=== PATIENT | female | born 1950 | race Caucasian/White ===

== ENCOUNTER → 2016-12-19 | Outpatient (CLI) | payer MEDICARE, OTHER ==
[~2016-12-19] MED LIST: ADVIL 200MG TA200 MG PO; ALLEGRA30 MG PO; BIOTIN1 MG PO; CALCIUM 600MG+D1 TAB PO; CALCIUM1 CAP PO; CARDI-OMEGA1000 MG PO; CHANTIX 1MG1 MG PO; CLARITIN 1010 MG/TAB PO; DESYREL 50MG50 MG PO; DETROL2 MG PO; DIFLUCAN; EDECRIN25 M1 PO; FOSAMAX PO; GLUCOPHAGE1000 MG PO; GLUCOSAMINE & C1 CAP PO; GLUCOTROL XL2.5 MG PO; HEMORRHOIDAL HYGI50% TP; INDERAL 20MG20 MG PO; JANUMXR1000-50; LEVAQUIN 750MG750 MG PO; LIPITOR 10MG10 MG PO; LIPITOR20 MG PO; LORTAB 5/500 501 TAB PO; MELOXICAM; MILLIPRED DP5 MG; NASAL MOISTURIZ45 ML NS; NEXIUM 20MG20 MG PO; NEXIUM 40MG40 MG PO; NEXIUM40 MG PO; NORCO 325 MG-51 TAB PO; NORCO 325 MG-7.1 TAB PO; PLAQUENIL 200M200 MG; PRIL40 PO; PROAIR HFA0.09 MG/AC IH; RT ADVAIR 228 DISKUS IH; RT SPIRIVA18 MCG IH; SYNTHROID0.05 MG/TA PO; ULTRAM 50MG TAB50 MG PO; VESICARE 5MG5 MG PO; VITAMIN D32000 I1 PO; VOLTAREN SR25 MG/TAB PO; WELLBUTRIN SR150 M1 PO; ZITHROMAX 250M250 MG PO; ZOCOR 10MG10 MG PO; ZOCOR PO; ZYRTEC 10MG10 MG PO
== END ==
LOC: COL.RAD 08:00
PROVIDERS: Surgery
DX: K43.2 Incisional hernia without obstruction or gangrene (principal); Q79.59 Other congenital malformations of abdominal wall
CPT/HCPCS: Q9967

== ENCOUNTER 2017-03-16 16:15 | Inpatient (IN) | payer MEDICARE, OTHER ==
[~2017-03-16 16:15] MED LIST changes: -CHANTIX 1MG1 MG PO; -DESYREL 50MG50 MG PO; -EDECRIN25 M1 PO; -HEMORRHOIDAL HYGI50% TP; -NASAL MOISTURIZ45 ML NS; -PRIL40 PO; -VOLTAREN SR25 MG/TAB PO; -WELLBUTRIN SR150 M1 PO
[2017-04-04] VITALS (12 sets, daily range): BP systolic 90–116; BP diastolic 40–69; PULSE 66–75; TEMP 97.1–98.4
[2017-04-04] MEDS ORDERED: LIPITOR20 MG PO (11:08)
[2017-04-04] MEDS ORDERED: CHANTIX 1MG1 MG PO (11:26)
[2017-04-04] MEDS ORDERED: VOLTAREN SR25 MG/TAB PO (11:26)
[2017-04-04] MEDS ORDERED: EDECRIN25 M1 PO (11:27)
[2017-04-04] MEDS ORDERED: NASAL MOISTURIZ45 ML NS (11:28)
[2017-04-04] MEDS ORDERED: INDERAL 20MG20 MG PO (11:28)
[2017-04-04] MEDS ORDERED: DESYREL 50MG50 MG PO (11:29)
[2017-04-04] MEDS ORDERED: HEMORRHOIDAL HYGI50% TP (11:30)
[2017-04-04] MEDS ORDERED: PRIL40 PO (14:20)
[2017-04-04] MEDS ORDERED: WELLBUTRIN SR150 M1 PO (14:21)
[2017-04-05 01:50] VITALS: BP 108/52; PULSE 72; TEMP 97.9
[2017-04-05 05:26] VITALS: BP 112/61; PULSE 70; TEMP 98.4
[2017-04-05 09:19] VITALS: BP 98/49; PULSE 45; TEMP 97.9
[2017-04-05 14:45] VITALS: BP 104/53; PULSE 76
[2017-04-05 17:46] VITALS: BP 122/65; PULSE 78
[2017-04-05 22:35] VITALS: BP 124/63; PULSE 74; TEMP 98.3
[2017-04-06 02:29] VITALS: BP 119/58; PULSE 73; TEMP 98.6
[2017-04-06 05:16] VITALS: BP 130/64; PULSE 73; TEMP 98.6
[2017-04-06 09:38] VITALS: BP 133/71; PULSE 73; TEMP 99.2
== END 2017-04-06 13:53 | disposition home or self-care (01) | DRG 902 ==
LOC: OR 04-04 08:48 → SURG 04-04 08:48
PROVIDERS: Surgery
PROC: 0HB7XZZ Excision of Abdomen Skin, External Approach (ICD-10-PCS; 2017-04-04)
PROC: 0WUF0JZ Supplement Abdominal Wall with Synthetic Substitute, Open Approach (ICD-10-PCS; 2017-04-04)
PROC: 0WPF0JZ Removal of Synthetic Substitute from Abdominal Wall, Open Approach (ICD-10-PCS; principal; 2017-04-04 10:15)
DX: T85.79XA Infection and inflammatory reaction due to other internal prosthetic devices, implants and grafts, initial encounter (principal); T83.728A Exposure of other implanted mesh into organ or tissue, initial encounter; K43.2 Incisional hernia without obstruction or gangrene; B96.5 Pseudomonas (aeruginosa) (mallei) (pseudomallei) as the cause of diseases classified elsewhere; E11.9 Type 2 diabetes mellitus without complications; J44.9 Chronic obstructive pulmonary disease, unspecified; Z87.891 Personal history of nicotine dependence
CPT/HCPCS: A4315; C1781; J0330; J0360; J0690; J1100; J1200; J1650; J1885; J2250; J2300; J2405; J2704; J2710; J2765; J2795; J3010; J3370; J7030; J7040; J7120

== ENCOUNTER → 2017-04-17 | Outpatient (CLI) | payer MEDICARE, OTHER ==
[~2017-04-17] MED LIST changes: +CHANTIX 1MG1 MG PO; +DESYREL 50MG50 MG PO; +EDECRIN25 M1 PO; +HEMORRHOIDAL HYGI50% TP; +NASAL MOISTURIZ45 ML NS; +PRIL40 PO; +VOLTAREN SR25 MG/TAB PO; +WELLBUTRIN SR150 M1 PO
== END ==
LOC: ZCOL.LAB 14:13
DX: Z01.89 Encounter for other specified special examinations (principal)

== ENCOUNTER 2017-12-25 12:30 | Outpatient (RCR) | payer MEDICARE, OTHER | END 2018-02-22 07:18 | disposition home or self-care (01) | LOC: WSPT 12:30 | DX: M47.896 Other spondylosis, lumbar region (principal) | CPT/HCPCS: G8978-GP; G8979-GP; G8980-GP ==

== ENCOUNTER 2018-11-02 09:51 | Observation (INO) | payer MEDICARE, OTHER ==
[~2018-11-02] VITALS: Ht 175.3 cm; Wt 100.7 kg
[2018-11-02 10:51] LABS: COLLECTION METHOD CLEAN CATCH
[2018-11-02 10:54] LABS: BASO # 0.1 (0.0-0.2); BASO % 0.5 % (0.0-2.0); EOS # 0.1 (0.0-0.7); EOS % 0.7 % (0-4.0); GRAN # 11.9 (1.4-6.5); GRAN % 83.4 % (42.2-75.2); HEMATOCRIT 49.5 % (37.0-47.0); HEMOGLOBIN 16.8 g/dl (12.5-16.0); LYMPH # 1.4 (1.2-3.4); LYMPH % 9.5 % (20.0-51.0); MEAN CELL VOLUME 86 fl (80.0-100.0); MEAN CORPUSCULAR HEMOGLOBIN 29 pg (27.0-31.0); MEAN CORPUSCULAR HGB CONC 34 g/dl (33.0-37.0); MEAN PLATELET VOLUME 10.9 fl (7.4-10.4); MONO # 0.8 (0.1-0.6); MONO % 5.5 % (1.7-9.3); PLATELET COUNT 427 K/mm3 (130-400); RED BLOOD COUNT 5.74 M/mm3 (4.10-5.30); REDCELL DISTRIBUTION WIDTH-CV 14.7 % (11.5-14.5)
[2018-11-02 11:04] LABS: MUCOUS Present /lpf; PH 6 (5-8); URINE APPEARANCE Cloudy; URINE BACTERIA None Seen /hpf; URINE BILIRUBIN Negative (NEGATIVE); URINE BLOOD 1+ (NEGATIVE); URINE GLUCOSE Negative (NEGATIVE); URINE KETONE Negative (NEGATIVE); URINE LEUKOCYTE ESTERASE 1+ (NEGATIVE); URINE NITRATE Negative (NEGATIVE); URINE PROTEIN(semi-quant) 1+ (NEGATIVE)
[2018-11-02 11:08] LABS: URINE COLOR Yellow
[2018-11-02 11:23] LABS: ALBUMIN 4.2 gm/dL (3.5-5.0); BILIRUBIN,TOTAL 0.8 mg/dL (0.0-1.0); CALCIUM 9.7 mg/dL (8.4-10.2); CREATININE, serum 0.71 mg/dL (0.52-1.25); POTASSIUM 4.2 mmol/L (3.4-5.0); TOTAL PROTEIN 7.3 gm/dL (6.4-8.2)
[2018-11-02 15:24] VITALS: BP 115/54; PULSE 63; TEMP 97.5
[2018-11-02 15:29] VITALS: BP 115/54; PULSE 63; TEMP 97.5
[2018-11-02 15:34] VITALS: BP 115/54; PULSE 63; TEMP 97.5
[2018-11-02] MEDS ORDERED: TRULICITY1.5 MG/0.5 SQ (16:09)
[2018-11-02 19:37] VITALS: BP 123/64; PULSE 71; TEMP 98.1
--- NOTE | 2018-11-02 23:19 | NUR ---
PT IN BED. REFUSED EVENING MEDS TO AVOID NAUSEA/EMESIS. PT INFORMED SHE COULD HAVE PAIN MEDS BUT THEY SLOW THE GUT DOWN. PT DECIDED TO WAIT AWHILE LONGER. PT'S BOWEL SOUNDS ARE HYPERACTIVE. PT ENCOURAGED TO AMBULATE.
[2018-11-03 00:01] VITALS: BP 131/58; PULSE 74; TEMP 98.4
[2018-11-03 04:16] VITALS: BP 95/55; PULSE 73; TEMP 97.7
--- NOTE | 2018-11-03 05:42 | NUR ---
RESTING QUIETLY. NO REQUEST FOR PAIN MEDS SINCE MIDNIGHT. PT REPORTED SHE'S PASSING SOME GAS.
[2018-11-03 06:27] LABS: HEMATOCRIT 44.6 % (37.0-47.0); MEAN CELL VOLUME 88 fl (80.0-100.0); MEAN CORPUSCULAR HEMOGLOBIN 29 pg (27.0-31.0); MEAN CORPUSCULAR HGB CONC 33 g/dl (33.0-37.0); MEAN PLATELET VOLUME 10.8 fl (7.4-10.4); PLATELET COUNT 359 K/mm3 (130-400); RED BLOOD COUNT 5.07 M/mm3 (4.10-5.30); REDCELL DISTRIBUTION WIDTH-CV 14.9 % (11.5-14.5)
[2018-11-03 06:29] LABS: HEMOGLOBIN 14.7 g/dl (12.5-16.0)
[2018-11-03 06:38] LABS: ALBUMIN 3.5 gm/dL (3.5-5.0); CALCIUM 8.8 mg/dL (8.4-10.2); CREATININE, serum 0.67 mg/dL (0.52-1.25); MAGNESIUM 1.8 mg/dL (1.6-2.3); TOTAL PROTEIN 6.4 gm/dL (6.4-8.2)
[2018-11-03 06:55] VITALS: BP 92/54; PULSE 70; TEMP 98
[2018-11-03 06:59] LABS: BAND 5 % (0-10); EOSINOPHIL 2 % (0-4); LYMPHOCYTE 17 % (20.0-51.0); NEUTROPHILS 71 % (42.0-75.2); PLATELET ESTIMATE NORMAL (NORMAL)
--- NOTE | 2018-11-03 11:09 | NUR ---
Patient alert and oriented, answers questions appropriately. See assessment. Abdomen soft, non distended. Bowel sounds active x4 quads. +Flatus. No c/o pain or discomfort with abdominal palpation. No other c/o at this time.
[2018-11-03 12:01] VITALS: BP 137/61; PULSE 68; TEMP 98.2
[2018-11-03 16:58] VITALS: BP 114/57; PULSE 67; TEMP 98.1
[2018-11-03 19:24] VITALS: BP 122/59; PULSE 60; TEMP 97.9
[2018-11-04 00:01] VITALS: BP 113/55; PULSE 66; TEMP 97.8
[2018-11-04 04:28] VITALS: BP 132/70; PULSE 68; TEMP 98.8
[2018-11-04 07:49] VITALS: BP 135/70; PULSE 57; TEMP 98
--- NOTE | 2018-11-04 08:00 | NUR ---
PATIENT SITTING UP AT THE BEDSIDE WITH HER BREAKFAST TRAY THIS MORNING. PATIENT IS A&O. VSS. UPPER LUNG LOBES CLEAR UPON AUSCULTATION. COARSE CRACKLES AUSCULTATED OVER LUNG BASES BILATERALLY. PATIENT DENIES COMPLAINTS OF SHORTNESS OF BREATH OR PRODUCTIVE COUGH. BOWEL SOUNDS ACTIVE ALL FOUR QUADRANTS. PATIENT TOLERATING CLEAR LIQUIDS WITHOUT ANY COMPLAINTS OF N/V. POSITIVE PEDAL PULSES EQUAL BILATERALLY. ABDOMEN SOFT TO PALPATION. INDEPENDENT AGENT MUSIC EDUCATION REPORTED TWO LARGE BM'S OVER NIGHT. PATIENT PASSING FLATUS. IV FLUIDS INFUSING TO LEFT HAND IV VIA PUMP. PATIENT DENIES ANY PAIN AT THIS TIME. CALL LIGHT WITHIN REACH. DAUGHTER AT THE BEDSIDE. NO OTHER NEEDS AT THIS TIME.
--- NOTE | 2018-11-04 11:45 | NUR ---
NA met with the patient's daughter (Chayito) and (Leon) to discuss discharge plan. The patient was on a walk. The patient lives in [place] with her , Leon. The patient's reports that the patient is independent with ADLs, does not use any assistive devices, and has a CPAP from [facility]. The patient's PCP is Dr. Lul Dove and she receives her medications on [place]. The patient's advanced directives are in EMR. The patient plans to return home with her upon discharge. No additional needs at this time.
[2018-11-04 12:05] VITALS: BP 150/69; PULSE 99; TEMP 98.5
[2018-11-04] MEDS ORDERED: COLACE 100100 MG/CAP PO (13:00)
[2018-11-04] MEDS ORDERED: MIRALAX PA17 GM/Dose PO (13:01)
--- NOTE | 2018-11-04 14:30 | NUR ---
PATIENT TOLERATED LOW RESIDUE DIET AT LUNCH WITHOUT ANY COMPLAINTS OF N/V. PATIENT'S LEFT HAND INT DC'D PER PENDING DISCHAREG. PATIENT TOLERATED WELL.
--- NOTE | 2018-11-04 14:43 | NUR ---
PATIENT WALKED SELF OUT PRIOR TO LICENSED INSURANCE SALES AGENT ARRIVING AT ROOM WITH WHEELCHAIR. PATIENT DISCHARGED.
== END 2018-11-04 14:43 | disposition home or self-care (01) ==
LOC: COL.ER 09:51 → SURG 13:23
PROVIDERS: Emergency Medicine; ADMIT Surgery
DX: R10.9 Unspecified abdominal pain (principal); R11.0 Nausea; D47.3 Essential (hemorrhagic) thrombocythemia; D72.829 Elevated white blood cell count, unspecified; E11.9 Type 2 diabetes mellitus without complications; J44.9 Chronic obstructive pulmonary disease, unspecified; G47.33 Obstructive sleep apnea (adult) (pediatric); K21.9 Gastro-esophageal reflux disease without esophagitis; E03.9 Hypothyroidism, unspecified; E66.9 Obesity, unspecified; E78.5 Hyperlipidemia, unspecified; M81.0 Age-related osteoporosis without current pathological fracture; F17.200 Nicotine dependence, unspecified, uncomplicated; Z88.2 Allergy status to sulfonamides; Z88.1 Allergy status to other antibiotic agents; Z91.048 Other nonmedicinal substance allergy status; Z79.84 Long term (current) use of oral hypoglycemic drugs; Z86.14 Personal history of Methicillin resistant Staphylococcus aureus infection
CPT/HCPCS: G0378; J2270; J2405; J3010; J7030; J7120; Q9967

== ENCOUNTER → 2021-01-13 | Outpatient (CLI) | payer MEDICARE, OTHER ==
[~2021-01-13] MED LIST changes: +ASPIRIN 81M81 MG/TA2 PO; +COLACE 100100 MG/CAP PO; +COZAAR 50MG50 MG/TAB PO; +FLONASE NASAL S16 GM NS; +LYRICA 50MG CAP50 MG PO; +MASON NATURAL2000 IU PO; +MIRALAX PA17 GM/Dose PO; +MYSOLINE 5050 MG/TAB PO; +OMEGA-3 1000 MG1 CAP PO; +PRILOSEC 20MG20 MG PO; +STIOLTO RESPIMAT4 GM IH; +TRULICITY1.5 MG/0.5 SQ
== END ==
LOC: COL.RAD 13:01
DX: Z12.2 Encounter for screening for malignant neoplasm of respiratory organs (principal); Z87.891 Personal history of nicotine dependence

== ENCOUNTER → 2021-02-15 | Outpatient (CLI) | payer MEDICARE, OTHER ==
[~2021-02-15] VITALS: Ht 175.3 cm; Wt 105.0 kg
[2021-02-15 12:34] VITALS: BP 123/72; PULSE 73
[2021-02-15 13:30] VITALS: BP 136/75; PULSE 69
== END ==
LOC: COL.RAD 12:00
DX: M47.816 Spondylosis without myelopathy or radiculopathy, lumbar region (principal); M51.36 Other intervertebral disc degeneration, lumbar region
CPT/HCPCS: J3301

== ENCOUNTER → 2021-04-27 | Outpatient (CLI) | payer MEDICARE, OTHER ==
[2021-04-27 11:51] VITALS: BP 162/74; PULSE 68; TEMP 97.9
[2021-04-27 12:45] VITALS: BP 137/76; PULSE 64
== END ==
LOC: COL.RAD 11:18
DX: M51.36 Other intervertebral disc degeneration, lumbar region (principal); M47.816 Spondylosis without myelopathy or radiculopathy, lumbar region
CPT/HCPCS: J3301

== ENCOUNTER → 2022-04-27 | Outpatient (CLI) | payer MEDICARE, OTHER | LOC: COL.RAD 13:11 | DX: S99.821A Other specified injuries of right foot, initial encounter (principal) | CPT/HCPCS: J3301; Q9967 ==

== ENCOUNTER 2024-01-16 19:37 | Inpatient (IN) | payer MEDICARE, OTHER ==
[~2024-01-16] VITALS: Ht 167.6 cm; Wt 93.2 kg
[2024-01-16] VITALS: BP 149/71; PULSE 87; TEMP 97.8
[~2024-01-16 19:37] MED LIST changes: +COZAAR 25MG25 MG/TAB PO; +OZEMPIC0.25 MG/02 SQ
[2024-01-16] MEDS ORDERED: SINEMET 25/101 UDTAB PO (19:56)
[2024-01-16] MEDS ORDERED: OMEGA-3 FISH1000 MG PO (19:56)
[2024-01-16] MEDS ORDERED: methylPREDNISolone Sod Succ 125 MG/2 ML VIAL IV ONE (20:00)
[2024-01-16] MEDS ORDERED: Albuterol/Ipratropium 3 MG-0.5 MG/3 ML Neb Soln IH SCH (20:00)
[2024-01-16] MEDS ORDERED: HYDROXYURE500 MG/CAP PO (20:06)
[2024-01-16] MEDS ORDERED: ULTRAM 50MG TAB50 MG PO (20:09)
[2024-01-16] MEDS ORDERED: TRULICITY1.5 MG/0.5 SQ (20:09)
[2024-01-16] MEDS ORDERED: VESICARE10 MG PO (20:10)
[2024-01-16] MEDS ORDERED: VITAMIN D31000 IU PO (20:12)
[2024-01-16 20:37] LABS: ALANINE AMINOTRANSFERASE 33 U/L (0-55); ALBUMIN 3.9 g/dL (3.4-4.8); ALKALINE PHOSPHATASE 131 U/L (40-150); ANION GAP 14 mmol/L (7-16); AST,SGOT 20 U/L (5-34); BILIRUBIN,TOTAL 0.4 mg/dL (0.2-1.2); BLOOD UREA NITROGEN 10 mg/dL (10-20); CALCIUM 9.8 mg/dL (8.4-10.2); CHLORIDE 100 mEq/L (98-107); CREATININE, serum 0.84 mg/dL (0.57-1.11); GLUCOSE 125 mg/dL (70-99); SODIUM 136 mEq/L (136-145); TOTAL PROTEIN 7.4 g/dl (6.2-8.1)
[2024-01-16 20:42] LABS: BASO # 0.1 K/mm3 (0.0-0.2); BASO % 0.3 % (0.0-2.0); EOS # 0.7 K/mm3 (0.0-0.7); GRAN # 14.9 K/mm3 (1.4-6.5); GRAN % 82.4 % (42.2-75.2); HEMATOCRIT 38.5 % (37.0-47.0); HEMOGLOBIN 12.6 g/dl (12.5-16.0); LYMPH # 1.4 K/mm3 (1.2-3.4); LYMPH % 7.8 % (20.0-51.0); MEAN CELL VOLUME 83 fl (80.0-100.0); MEAN CORPUSCULAR HEMOGLOBIN 27 pg (27-31); MEAN CORPUSCULAR HGB CONC 33 g/dl (33.0-37.0); MEAN PLATELET VOLUME 11.3 fl (7.4-10.4); MONO # 0.9 K/mm3 (0.1-0.6); PLATELET COUNT 479 K/mm3 (130-400); RED BLOOD COUNT 4.66 M/mm3 (4.10-5.30); REDCELL DISTRIBUTION WIDTH-CV 14.8 % (11.5-14.5)
[2024-01-16 20:53] LABS: TROPONIN-I < 0.010 ng/mL (0.00-0.033)
[2024-01-16 21:00] LABS: COLLECTION METHOD CLEAN CATCH
[2024-01-16 21:10] LABS: URINE APPEARANCE CLEAR (CLEAR/HAZY); URINE BLOOD NEGATIVE (NEGATIVE); URINE COLOR YELLOW (YELLOW); URINE GLUCOSE NEGATIVE (NEGATIVE); URINE KETONE NEGATIVE (NEGATIVE); URINE NITRATE NEGATIVE (NEGATIVE); URINE PROTEIN(semi-quant) NEGATIVE (NEGATIVE); URINE UROBILINOGEN 0.2 E.U/dL (0.2-1.0)
[2024-01-16] MEDS ORDERED: NS 50 ML IV ONE (21:54)
[2024-01-16] MEDS ORDERED: Iohexol 300 - 100 ML VIAL IV ONE (21:54)
[2024-01-16] MEDS ORDERED: CALCIUM 600-D 61 TAB PO (22:40)
[2024-01-16] MEDS ORDERED: INDERAL LA 60MG60 MG PO (22:41)
[2024-01-16] MEDS ORDERED: LIPITOR 40MG TA40 MG PO (22:43)
[2024-01-16] MEDS ORDERED: Atorvastatin 40 MG TAB PO SCH (22:43)
[2024-01-16] MEDS ORDERED: SENOKOT8.6 MG PO (22:48)
[2024-01-16] MEDS ORDERED: VITAMIN D31000 I1 PO (22:50)
[2024-01-16] MEDS ORDERED: traMADol 50 MG TAB PO PRN (23:00)
[2024-01-16 23:30] VITALS: BP 149/77; PULSE 87; TEMP 97.8
[2024-01-16] MEDS ORDERED: Furosemide 40 MG/4 ML VIAL IV ONE (23:45)
[2024-01-17] VITALS (12 sets, daily range): BP systolic 105–149; BP diastolic 60–73; PULSE 69–81; TEMP 97.4–98.4
[2024-01-17] MEDS ORDERED: Pregabalin 50 MG CAP PO SCH (00:15)
[2024-01-17] MEDS ORDERED: Cefuroxime 250 MG TAB PO SCH (00:15)
[2024-01-17] MEDS ORDERED: dexAMETHasone 10 MG/ML VIAL IV SCH (00:15)
[2024-01-17] MEDS ORDERED: Primidone 50 MG TAB PO SCH (00:15)
[2024-01-17] MEDS ORDERED: Dextrose 50% Water 25 GM/50 ML SYRINGE IV PRN (00:30)
[2024-01-17] MEDS ORDERED: Dextrose (Glucose) 15 GM (4 x 3.75 GM) Chewable TABLET PACK PO PRN (00:30)
[2024-01-17] MEDS ORDERED: Glucagon 1 MG VIAL IM PRN (00:30)
--- NOTE | 2024-01-17 01:53 | NUR ---
patient arrived from ED around 2330, alert and oriented x4. ambulated with weak gait to bathroom and then to bed. denies chest pain and reports shortness of breath with exertion. IV in LAC is patent, site is clean dry and intact. small scattered general bruising on extremities, no additional remarkable skin abnormalities. pt has no further needs, questions, or concerns at this time. fall precautions ing place, call light within reach. will continue to monitor.
[2024-01-17] MEDS ORDERED: Formoterol Neb Soln 20 MCG/2 ML UD IH SCH (07:00)
[2024-01-17] MEDS ORDERED: Budesonide Neb Susp 0.5 MG/2 ML AMP IH SCH (07:00)
[2024-01-17 07:06] LABS: BASO # 0.1 K/mm3 (0.0-0.2); BASO % 0.4 % (0.0-2.0); EOS # 0.2 K/mm3 (0.0-0.7); GRAN # 14.8 K/mm3 (1.4-6.5); GRAN % 90.5 % (42.2-75.2); HEMATOCRIT 38.4 % (37.0-47.0); HEMOGLOBIN 12.4 g/dl (12.5-16.0); LYMPH % 5.8 % (20.0-51.0); MEAN CELL VOLUME 82 fl (80.0-100.0); MEAN CORPUSCULAR HEMOGLOBIN 27 pg (27-31); MEAN CORPUSCULAR HGB CONC 32 g/dl (33.0-37.0); MEAN PLATELET VOLUME 11.6 fl (7.4-10.4); MONO # 0.3 K/mm3 (0.1-0.6); MONO % 1.7 % (1.7-9.3); PLATELET COUNT 451 K/mm3 (130-400); RED BLOOD COUNT 4.67 M/mm3 (4.10-5.30); REDCELL DISTRIBUTION WIDTH-CV 14.8 % (11.5-14.5)
[2024-01-17 07:15] LABS: CALCIUM 9.4 mg/dL (8.4-10.2); CREATININE, serum 0.88 mg/dL (0.57-1.11); POTASSIUM 3.7 mEq/L (3.5-4.5)
[2024-01-17] MEDS ORDERED: Insulin Lispro (HumaLOG) SQ SCH ×3 (08:00→21:00)
[2024-01-17] MEDS ORDERED: Cholecalciferol (Vit D3) 1000 Units TAB PO SCH (09:00)
[2024-01-17] MEDS ORDERED: Umeclidinium/Vilanterol 62.5-25 MCG INHALATION/INHALER IH SCH (09:00)
[2024-01-17] MEDS ORDERED: Nicotine 21 MG DAILY PATCH TD SCH (09:00)
[2024-01-17] MEDS ORDERED: [UNRECOGNIZED DRUG - OTHER] IH SCH (09:00)
[2024-01-17] MEDS ORDERED: Calcium Carb/Vit D3 500 mg-200 Units TAB PO SCH (09:00)
[2024-01-17] MEDS ORDERED: VILANTEROL IH SCH (09:00)
[2024-01-17] MEDS ORDERED: Hydroxyurea 500 MG CAP PO SCH (09:00)
[2024-01-17] MEDS ORDERED: Solifenacin 5 MG **** subs to Oxybutynin XL 5 MG PO SCH (09:00)
[2024-01-17] MEDS ORDERED: OLODATEROL IH SCH (09:00)
[2024-01-17] MEDS ORDERED: TIOTROPIUM IH SCH (09:00)
[2024-01-17] MEDS ORDERED: Insulin Glargine-ygfn (Lantus) SQ SCH (09:17)
[2024-01-17] MEDS ORDERED: MACROBID 1100 MG/CAP PO (09:23)
--- NOTE | 2024-01-17 12:28 | NUR ---
PT RESTING IN THE CHAIR WITH NO PAIN AND STEADY GAIT WITH SBA. PT REMAINSO N 3L 02, FAMILY AT BEDSIDE, PT TOLERATING DEIT WELL. NO NEEDS AT THIS TIME. WILL CONTINUE TO MONITOR.
--- NOTE | 2024-01-17 13:47 | NUR ---
Paver Operator met with patient to discuss discharge planning. Patient lives in [place] with her daughter, Carine (ph#[phone]) [address] Hyman for primary care. Patient obtains medications from [facility] and does not use any DME. SW does note that patient is currently requiring oxygen. Patient stated she is normally independent with ADLS and plans to return home at time of discharge. Patient is unsure if she has any Advance Directives but avdised she has three children: Juan, Malathi, and Carine. Discharge Plan: Home
[2024-01-17] MEDS ORDERED: Insulin Lispro (HumaLOG) SQ ONE (17:15)
--- NOTE | 2024-01-17 21:53 | NUR ---
patient lying in bed alert and oriented x4. denies chest pain and shortness of breath. IV in LAC is patent, site is clean dry and intact. pt ambulated up to bathroom and back in bed with steady gait using wall for balance occasionally. small scaterred bruising on extremities, BLE nonpitting edema noted. pt has no further needs, questions or concerns at this time. fall precautions in place, call light within reach. will continue to monitor.
[2024-01-18] VITALS (9 sets, daily range): BP systolic 105–143; BP diastolic 51–70; PULSE 56–67; TEMP 97.7–98.5
[2024-01-18] MEDS ORDERED: predniSONE 20 MG TAB PO SCH (08:00)
--- NOTE | 2024-01-18 08:00 | NUR ---
Patient sitting up in bed after using the bathroom. A&Ox4. VSS. 0.5L NC O2. IV CDI. Denies pain and discomfort. Call light within reach
[2024-01-18] MEDS ORDERED: Insulin Glargine-ygfn (Lantus) SQ ONE (09:45)
--- NOTE | 2024-01-18 10:52 | NUR ---
D: Initial visit: Nuclear Radiologist stopped by room on rounds. A: Pt was resting and content. Pt has no needs right now. P: Nuclear Radiologist informed pt that if she needed anything from the medical editor area to let her nurse know. Nuclear Radiologist will follow up as needed.
--- NOTE | 2024-01-18 11:46 | NUR ---
Science Technician met with patient and her daughter, Carine (who she lives with) to review discharge plan. Patient advised she may be discharged tomorrow. Patient is still on oxygen but is hopeful to be weaned off. Discharge Plan: Home, possible home oxygen
[2024-01-18] MEDS ORDERED: Insulin Glargine-ygfn (Lantus) SQ SCH (21:00)
--- NOTE | 2024-01-18 22:32 | NUR ---
NURSING SHIFT ASSESSMENT COMPLETED. THE PATIENT WAS ALERT AND ORIENTED. THE PATIENT DENIED PAIN OR DISCOMFORT. THE PATIENT DENIED NEEDS OR CONCERNS. THE PLAN OF CARE AND EVENING MEDICATIONS REVIEWED TO INCLUDE INSULIN ORDERS AND DOSAGES FOR A BLOOD SUGAR OF 292. THE PATIENT STATED THAT SHE KNOWS VERY LITTLE ABOUT HER MEDICATIONS. SO SHE THOUGHT IT HELPFUL TO HAVE THE INFORMATION. NO OTHER NEEDS. THE CALL LIGHT AND PERSONAL BELONGINGS WITHIN REACH. THE BED IS IN THE LOW POSITION. BED ALARM ON.
[2024-01-19 01:00] VITALS: BP_SYST 112
[2024-01-19 03:11] VITALS: BP 103/56; PULSE 53; TEMP 97.8
[2024-01-19 05:00] VITALS: BP_SYST 134
[2024-01-19 07:18] VITALS: BP 134/72; PULSE 52; TEMP 97.7
[2024-01-19 08:15] VITALS: BP_SYST 134
--- NOTE | 2024-01-19 08:15 | NUR ---
PT LAYING IN BED UPON ENTERING, FAMAILY AT BEDSIDE. ASSESSMENT DONE, MEDS GIVEN PER ORDER. PT DENIES PAIN AT THIS TIME. PREVIOUS NICOTINE PATCH TO RIGHT UPPER ARM REMOVED, NEW NICOTINE PATCH PLACED TO LEFT UPPER ARM. INT TO LEFT AC PATENT. PT DENIES NEEDS. BED IN LOWEST POSITION, CALL LIGHT IN REACH, BED ALARM ON
[2024-01-19] MEDS ORDERED: PROAIR HFA0.09 MG/AC IH (09:03)
[2024-01-19] MEDS ORDERED: CEFTIN500 MG PO (09:03)
[2024-01-19] MEDS ORDERED: MEDROL 4MG DOSPA4 MG PO (09:04)
--- NOTE | 2024-01-19 10:26 | NUR ---
IV TO LEFT AC REMOVED AND PT DRESSED IN PERSONAL CLOTHES. PT GIVEN DISCHARGE INSTRUCTIONS AND VERBALIZED UNDERSTANDING. PT REPORTS STILL MISSING CELLPHONE WITH A BUTTERFLY POPSOCKET ON IT, FAMILY STATES THEY CHECKED WITH THE ER TODAY AGAIN. PT DENIES NEEDS AND ESCORTED TO PERSONAL VEHICLE VIA WHEELCHAIR BY PCT.
== END 2024-01-19 10:28 | disposition home or self-care (01) | DRG 189 ==
LOC: COL.ER 19:37 → MEDICAL 22:59 → EDBEDREQ 23:09 → MEDICAL 01-19 10:28
PROVIDERS: Emergency Medicine; Nurse Practitioner Family; ADMIT Internal Medicine
DX: J96.01 Acute respiratory failure with hypoxia (principal); J44.1 Chronic obstructive pulmonary disease with (acute) exacerbation; R65.10 Systemic inflammatory response syndrome (SIRS) of non-infectious origin without acute organ dysfunction; J90 Pleural effusion, not elsewhere classified; D47.1 Chronic myeloproliferative disease; Z66 Do not resuscitate; F17.210 Nicotine dependence, cigarettes, uncomplicated; I10 Essential (primary) hypertension; E66.9 Obesity, unspecified; G47.33 Obstructive sleep apnea (adult) (pediatric); M81.0 Age-related osteoporosis without current pathological fracture; E11.40 Type 2 diabetes mellitus with diabetic neuropathy, unspecified; E03.9 Hypothyroidism, unspecified; F03.90 Unspecified dementia, unspecified severity, without behavioral disturbance, psychotic disturbance, mood disturbance, and anxiety; E11.51 Type 2 diabetes mellitus with diabetic peripheral angiopathy without gangrene; Z20.822 Contact with and (suspected) exposure to COVID-19; G24.9 Dystonia, unspecified; N32.81 Overactive bladder; E78.5 Hyperlipidemia, unspecified; I27.20 Pulmonary hypertension, unspecified; Z90.49 Acquired absence of other specified parts of digestive tract; Z99.89 Dependence on other enabling machines and devices; Z90.710 Acquired absence of both cervix and uterus; Z88.1 Allergy status to other antibiotic agents; Z88.2 Allergy status to sulfonamides; Z88.8 Allergy status to other drugs, medicaments and biological substances; Z79.82 Long term (current) use of aspirin; Z79.899 Other long term (current) drug therapy; Z79.890 Hormone replacement therapy; Z68.33 Body mass index [BMI] 33.0-33.9, adult; Z86.14 Personal history of Methicillin resistant Staphylococcus aureus infection; Z91.040 Latex allergy status; Z23 Encounter for immunization
CPT/HCPCS: A9284; J1100; J1650; J1815; J1940; J2919; J7512; Q9967